=== PATIENT | female | born 1985 | race Caucasian/White ===

== ENCOUNTER 2018-12-13 10:19 | Emergency (ER) | payer OTHER ==
[2018-12-13] MEDS ORDERED: ONDANSETRON 4 MG TAB.RAPDIS PO ONE (10:36)
--- NOTE | 2018-12-13 11:00 | ER Document Report ---
Entered by ANA CRISTINA PUGA SCRIBE 12/13/18 1051 Acting as scribe for:LYNETTE NUNES DO ED Medical Screen (RME) - General Chief Complaint: Abdominal Pain Stated Complaint: ABDOMINAL PAIN Time Seen by Provider: 12/13/18 10:29 Notes: 33-year-old female with history of SBO with surgical intervention that presents to the emergency department today with complaints of abdominal pain, nausea, and diarrhea. Patient states it feels similar to her previous SBO. Patient states about 4 weeks ago she noticed that her stool was becoming "liquidy". Patient states that she cut back on caffeine and gluten thinking that this could be flaring up her gastritis but she had no change in her stool when doing this. Patient states as the last 4 weeks have gone by, her stools have had less and less solid feces. Patient states that she was told her SBO was caused from an adhesion. Patient states she tried Imodium and Zofran with no relief. Patient denies any vomiting or fevers. Patient mentions she has a history of herpes and HPV but denies any active flare. I have greeted and performed a rapid initial assessment of this patient. A comprehensive ED assessment and evaluation of the patient, analysis of test results, and completion of the medical decision making process will be conducted by additional ED providers. Review of systems: Constitutional: Denies fevers. EENT: No symptoms reported Cardiovascular: No symptoms reported Respiratory: No symptoms reported Gastrointestinal: Abdominal pain. Nausea. Diarrhea. Denies vomiting. Genitourinary: No symptoms reported Musculoskeletal: No symptoms reported Skin: No symptoms reported Hematologic/Lymphatic: No symptoms reported Neurological/Psychological: No symptoms reported Yes All other systems reviewed and negative PHYSICAL EXAM GENERAL: Alert, interacts well. No acute distress. HEAD: Normocephalic, atraumatic. EYES: Pupils equal, round, and reactive to light. Extraocular movements intact. ENT: Oral mucosa moist, tongue midline. NECK: Full range of motion. Supple. Trachea midline. ABDOMEN: Mild diffuse abdominal tenderness with palpation, no focal tenderness. LUNGS: No respiratory distress. EXTREMITIES: Moves all 4 extremities spontaneously. NEUROLOGICAL: Alert and oriented x3. Normal speech. PSYCH: Normal affect, normal mood. SKIN: Warm and dry. - Related Data Allergies/Adverse Reactions: gluten Allergy (Verified 12/13/18 10:22) lactose Allergy (Verified 12/13/18 10:22) Past Medical History - Social History Chew tobacco use (# tins/day): No Frequency of alcohol use: Rare Drug Abuse: None Renal/ Medical History: Denies: Hx Peritoneal Dialysis Past Surgical History: Reports: Hx Orthopedic Surgery - [place] teeth x4 Physical Exam - Vital signs Vitals: Temp Pulse Resp BP Pulse Ox 99.8 F 117 H 18 132/85 H 96 12/13/18 10:12/13/18 10:12/13/18 10:12/13/18 10:23 12/13/18 10:23 Course - Vital Signs Vital signs: Temp Pulse Resp BP Pulse Ox 99.8 F 117 H 18 132/85 H 96 12/13/18 10:12/13/18 10:12/13/18 10:12/13/18 10:12/13/18 10:23 I personally performed the services described in the documentation, reviewed and edited the documentation which was dictated to the scribe in my presence, and it accurately records my words and actions.
[2018-12-13 11:15] LABS: ABSOLUTE EOSINOPHILS # (AUTO) 0.2 10^3/uL (0.0-0.6); ABSOLUTE MONOCYTES (AUTO) 0.6 10^3/uL (0.1-1.4); ABSOLUTE NEUT (AUTO) 12.9 10^3/uL (1.7-8.2); BASOPHILS % (AUTO) 0.2 % (0-2); HEMATOCRIT 37.8 % (36.0-47.0); HEMOGLOBIN 12.8 g/dL (12.0-15.5); LYMPHOCYTES % (AUTO) 6.9 % (13-45); MEAN CORPUSCULAR HEMOGLOBIN 27.1 pg (27.0-33.4); MEAN CORPUSCULAR HGB CONC 33.8 g/dL (32.0-36.0); MEAN CORPUSCULAR VOLUME 80 fl (80-97); MONOCYTES % (AUTO) 4.4 % (3-13); PLATELET COUNT 430 10^3/uL (150-450); RED BLOOD COUNT 4.71 10^6/uL (3.72-5.28); RED CELL DISTRIBUTION WIDTH 13.7 % (11.5-14.0); SEGMENTED NEUTROPHILS % (AUTO) 87.5 % (42-78); TOTAL CELLS COUNTED % (AUTO) 100 %; WHITE BLOOD COUNT 14.7 10^3/uL (4.0-10.5)
[2018-12-13 11:21] LABS: APPEARANCE,URINE CLOUDY; BILIRUBIN,URINE NEGATIVE (NEGATIVE); GLUCOSE, URINE NEGATIVE (NEGATIVE); KETONES,URINE NEGATIVE (NEGATIVE); LEUKOCYTE ESTERASE,URINE MODERATE (NEGATIVE); NITRITE,URINE NEGATIVE (NEGATIVE); PROTEIN,URINE 30 mg/dL (NEGATIVE); URINE SPECIFIC GRAVITY 1.028; UROBILINOGEN,URINE NEGATIVE mg/dL (<2.0)
[2018-12-13 11:23] LABS: COLOR,URINE DARK YELLOW
[2018-12-13 11:34] LABS: ALANINE AMINOTRANSFERASE 33 U/L (9-52); ALKALINE PHOSPHATASE 78 U/L (38-126); ANION GAP 13 (5-19); ASPARTATE AMINO TRANSFERASE 20 U/L (14-36); BILIRUBIN,DIRECT 0.2 mg/dL (0.0-0.4); BILIRUBIN,TOTAL 0.9 mg/dL (0.2-1.3); BLOOD UREA NITROGEN 11 mg/dL (7-20); CALCIUM 10.2 mg/dL (8.4-10.2); CARBON DIOXIDE 25 mmol/L (22-30); CHLORIDE 103 mmol/L (98-107); GLUCOSE 107 mg/dL (75-110); POTASSIUM 4.7 mmol/L (3.6-5.0); SODIUM 140.7 mmol/L (137-145); TOTAL PROTEIN 7.9 g/dL (6.3-8.2)
[2018-12-13] MEDS ORDERED: ACETAMINOPHEN 325 MG TABLET PO ONE (12:19)
[2018-12-13] MEDS ORDERED: HYOSCYAMINE SULFATE 0.125 MG TABLET PO ONE (12:20)
--- NOTE | 2018-12-13 12:20 | RADIOLOGY REPORT (SQ) ---
EXAM DESCRIPTION: ACUTE ABDOMEN SERIES COMPLETED DATE/TIME: 12/13/2018 11:56 am REASON FOR STUDY: abd pain COMPARISON: None. NUMBER OF VIEWS: Three views. TECHNIQUE: Frontal chest, supine abdomen and upright/decubitus abdomen radiographic images acquired. LIMITATIONS: None. FINDINGS: CHEST: Lungs clear of infiltrates. FREE AIR: None. No abnormal gas collections. BOWEL GAS PATTERN: Nonobstructive pattern. No dilated loops or air fluid levels. CALCIFICATIONS: No suspicious calcifications. HARDWARE: None in the abdomen. SOFT TISSUES: No gross mass or suggestion of organomegaly. BONES: No acute fracture. No worrisome bone lesions. OTHER: No other significant finding. IMPRESSION: NO RADIOGRAPHIC EVIDENCE FOR ACUTE ABDOMINAL DISEASE. TECHNICAL DOCUMENTATION: JOB ID: [id number] [employer]- All Rights Reserved Reading location - IP/workstation name: [email or web address]
--- NOTE | 2018-12-13 13:22 | ER Document Report ---
ED General - General Chief Complaint: Abdominal Pain Stated Complaint: ABDOMINAL PAIN Time Seen by Provider: 12/13/18 10:29 - HPI Patient complains to provider of: Abdominal pain Notes: Patient coming in for evaluation of abdominal pain and diarrhea. Patient was seen by her triage provider's notes provided below 33-year-old female with history of SBO with surgical intervention that presents to the emergency department today with complaints of abdominal pain, nausea, and diarrhea. Patient states it feels similar to her previous SBO. Patient states about 4 weeks ago she noticed that her stool was becoming "liquidy". Patient states that she cut back on caffeine and gluten thinking that this could be flaring up her gastritis but she had no change in her stool when doing this. Patient states as the last 4 weeks have gone by, her stools have had less and less solid feces. Patient states that she was told her SBO was caused from an adhesion. Patient states she tried Imodium and Zofran with no relief. Patient denies any vomiting or fevers. Patient mentions she has a history of herpes and HPV but denies any active flare. Upon my evaluation patient is crying patient states that she is concerned she may have another SBO. Patient denies any recent travel patient denies being stating that her is currently on deployment. Patient looks to be no obvious distress - Related Data Allergies/Adverse Reactions: gluten Allergy (Verified 12/13/18 10:22) lactose Allergy (Verified 12/13/18 10:22) Past Medical History - Social History Smoking Status: Never Smoker Chew tobacco use (# tins/day): No Frequency of alcohol use: Rare Drug Abuse: None Family History: Reviewed & Not Pertinent Patient has suicidal ideation: No Patient has homicidal ideation: No Renal/ Medical History: Denies: Hx Peritoneal Dialysis Past Surgical History: Reports: Hx Orthopedic Surgery - [place] teeth x4 Review of Systems - Review of Systems Constitutional: No symptoms reported EENT: No symptoms reported Cardiovascular: No symptoms reported Respiratory: No symptoms reported Gastrointestinal: Abdominal pain Genitourinary: No symptoms reported Female Genitourinary: No symptoms reported Musculoskeletal: No symptoms reported Skin: No symptoms reported Hematologic/Lymphatic: No symptoms reported Neurological/Psychological: No symptoms reported -: Yes All other systems reviewed and negative Physical Exam - Vital signs Vitals: Temp Pulse Resp BP Pulse Ox 99.8 F 117 H 18 132/85 H 96 12/13/18 10:23 12/13/18 10:23 12/13/18 10:23 12/13/18 10:23 12/13/18 10:23 Interpretation: Normal - General General appearance: Appears well, Alert - HEENT Head: Normocephalic, Atraumatic Eyes: Normal Pupils: PERRL - Respiratory Respiratory status: No respiratory distress Chest status: Nontender Breath sounds: Normal Chest palpation: Normal - Cardiovascular Rhythm: Regular Heart sounds: Normal auscultation Murmur: No - Abdominal Inspection: Normal Distension: No distension Bowel sounds: Normal Tenderness: Nontender. No: Tender, McBurney's point, Cortez's sign, Guarding, Rebound Organomegaly: No organomegaly - Back Back: Normal, Nontender - Extremities General upper extremity: Normal inspection, Nontender, Normal color, Normal ROM, Normal temperature General lower extremity: Normal inspection, Nontender, Normal color, Normal ROM, Normal temperature, Normal weight bearing. No: Xiomara's sign - Neurological Neuro grossly intact: Yes Cognition: Normal Orientation: AAOx4 Mike Coma Scale Eye Opening: Spontaneous Wolf Coma Scale Verbal: Oriented Mike Coma Scale Motor: Obeys Commands Wolf Coma Scale Total: 15 Speech: Normal Motor strength normal: LUE, RUE, LLE, RLE Sensory: Normal - Psychological Associated symptoms: Normal affect, Normal mood - Skin Skin Temperature: Warm Skin Moisture: Dry Skin Color: Normal Course - Re-evaluation Re-evalutation: 12/13/18 15:26 Laboratory studies showed a slight leukocytosis however acute abdominal series is negative. Initial examination and reexamination of the patient reveals a nonsurgical abdomen. No guarding or rebound. Patient has had no vomiting and able to tolerate p.o. patient has had no diarrhea while here in the ER. With t hese findings highly doubtful the patient has underlying SBO. Explained to patient that we will be discharging her home. Upon preparing the patient's discharge papers I was notified by the nursing staff that the patient requesting a CAT scan at this time. Again the reviewed the patient's laboratory studies and normal vital signs CAT scan is not warranted at this time patient will be continued to be discharged The patient presents with abdominal pain without signs of peritonitis or other life-threatening or serious etiology. The patient appears stable for discharge and has been instructed to return immediately if the symptoms worsen in any way, or in 8-12hr if not improved for re-evaluation. The patient has been instructed to return if the symptoms worsen or change in any way. - Vital Signs Vital signs: Temp Pulse Resp BP Pulse Ox 99.8 F 117 H 18 132/85 H 96 12/13/18 10:23 12/13/18 10:23 12/13/18 10:23 12/13/18 10:23 12/13/18 10:23 - Laboratory Result Diagrams: 12/13/18 10:48 12/13/18 10:48 Laboratory results interpreted by me: 12/13/18 12/13/18 10:48 10:48 WBC 14.7 H Seg Neutrophils % 87.5 H Lymphocytes % 6.9 L Absolute Neutrophils 12.9 H Urine Protein 30 H Ur Leukocyte Esterase MODERATE H Discharge - Discharge Clinical Impression: Abdominal pain Qualifiers: Abdominal location: unspecified location Qualified Code(s): R10.9 - Unspecified abdominal pain Diarrhea Qualifiers: Diarrhea type: unspecified type Qualified Code(s): R19.7 - Diarrhea, unspecified Condition: Good Disposition: HOME, SELF-CARE Instructions: Abdominal Pain ([facility]), Diarrhea, Nonspecific ([facility]) Additional Instructions: Your evaluation does not show any signs of any obstruction do believe her diarrhea is more viral in nature however would recommend providing us with a sample and taken to outpatient lab for further testing. Would recommend continue with dicyclomine for abdominal cramping Tylenol Motrin for abdominal pain Zofran for any nausea that she may have follow-up with your primary care physician return to ER symptoms worsen. Prescriptions: Hyoscyamine Sulfate [Hyosyne] 0.125 mg PO Q6 #30 ml Ondansetron [Zofran Odt 4 mg Tablet] 1 - 2 tab PO Q4H PRN #30 tab.rapdis PRN Reason: For Nausea/Vomiting Forms: Follow-Up Outpatient Testing
[2018-12-13 15:27] VITALS: BP 130/84
== END 2018-12-13 13:30 | disposition home or self-care (01) ==
LOC: ER 10:19
DX: R10.9 Unspecified abdominal pain (principal); R19.7 Diarrhea, unspecified
CPT/HCPCS: 99284; 36415; 84703; 85025; 80053; 81001; 74022; S0119; J3490